=== PATIENT | female | born 1980 | race Caucasian/White ===

== ENCOUNTER 2017-12-12 15:32 | Emergency (ER) | payer OTHER ==
[~2017-12-12] VITALS: Ht 162.6 cm; Wt 59.0 kg
[2017-12-12 15:40] VITALS: BP 133/40
[2017-12-12] MEDS ORDERED: DEXAMETHASONE 10 MG/ML VIAL IM ONE (16:45)
[2017-12-12] MEDS ORDERED: KETOROLAC 60 MG/2 ML VIAL IM ONE (16:45)
[2017-12-12 17:52] VITALS: BP 130/42
== END 2017-12-12 17:52 | disposition home or self-care (01) ==
LOC: MED 15:32
DX: M25.572 Pain in left ankle and joints of left foot (principal); M25.571 Pain in right ankle and joints of right foot
CPT/HCPCS: 96372; 99284; J1100; J1885